=== PATIENT | male | born 1955 ===

== ENCOUNTER 2023-12-01 11:21 | Outpatient (AMB) | payer MEDICARE, OTHER, SELFPAY ==
--- NOTE | 2023-12-01 11:24 | AM.OFFWIN_ITS ---
Intake Vital Signs 12/01/23 11:25 Height 6 ft 2 in Weight 229 lb 2 oz BMI 29.4 BP 120/70 Blood Pressure Location Lt brachial Position Sitting Pulse 75 Pulse Source Pulse Oximeter Pulse Oximetry (%) 96 Oxygen Delivery Method Room Air Intake Visit Reasons: Cough Intake Note: Patient is here today for cough for a few weeks after a cold. OTC not helping Patient Tobacco Use Status: Never used Tobacco Billing Adjudicator Required: No Gang Plank Workman: Not Required per policy Accompanied by: Self / Same As Patient Allergies No Known Allergies Allergy (Verified 12/01/23 11:41) Medication List - Last Reconciled 12/01/23 by Carolyn Rudd, [employer]POR[employer] OFFICER- amlodipine 10 mg PO DAILY atorvastatin 20 mg PO DAILY losartan 50 mg PO DAILY Do you need a note to return to daycare/school/sports/work: No HPI HPI Comments History of Present Illness Details here today for c/o cough that has been present since having flu like sx a few weeks ago flu sx are gone cough is congested, sputum is yellow assoc w/ runny nose and some post nasal drip currently denies fever reports + asthma using otc meds w/o relief does not smoke denies recent travel, hemoptysis, chest pain PFSH Social History Patient Tobacco Use Status: Never used Tobacco Review of Systems Const All systems reviewed & are unremarkable except as noted in HPI and below Physical Exam Vital Signs: Last Vital Signs Pulse 75 12/01/23 11:25 BP 120/70 12/01/23 11:25 Pulse Ox 96 12/01/23 11:25 Oxygen Delivery Method Room Air 12/01/23 11:25 BMI result Body Mass Index 29.4 Const Other: awake alert NAD sclera/conjunctiva clear bilat TM intact bilat, mild effusion on R Nares patent, turbinates WNL pharynx w/ mild erythema, + PND LS CTAB, one cough during the exam that was self limited distant hard to appreciate heart sounds Assessment & Plan Assessment & Plan (1) Post-viral cough syndrome: Code(s): R05.8 - Other specified cough Plan: . (2) Post-nasal drainage: Code(s): R09.82 - Postnasal drip Plan . Medications: New fluticasone propionate 50 mcg/actuation administer into each nostril 1 spray intranasal BID 16 grams 0RF benzonatate 100 mg PO TID 10 days PRN 30 caps 1RF cough Patient Instructions: We will treat his symptoms with Flonase and Tessalon. Advised to use the Flonase for 1 month. And then okay to discontinue. The Tessalon can be use as needed. If this does not remedy his cough or if his symptoms get worse advised to seek additional health care. Coding Level of Care Code Est Pt Level 3 (22996) Diagnoses Post-viral cough syndrome R05.8 Post-nasal drainage R09.82
[2023-12-01 11:25] VITALS: BP 120/70; PULSE 75; O2SAT 96; BMI 29.4
== END 2023-12-01 11:50 | disposition home or self-care (01) ==
PROVIDERS: Visit Provider Nurse Practitioner Family
DX: R05.8 Other specified cough (principal); R09.82 Postnasal drip
CPT/HCPCS: 99213